=== PATIENT | female | born 2000 | race Caucasian/White ===

== ENCOUNTER 2024-06-04 14:55 | Emergency (ER) | payer SELFPAY ==
--- NOTE | 2024-06-04 14:57 | ED.CVA ---
History of Present Illness
<SORAYA Dahl - Last Filed: 06/04/24 18:47>
General
Chief Complaint: Seizure
Source: patient and family
Exam Limitations: none
Time Seen by Provider: 06/04/24 15:08
Nursing documentation reviewed up to this point in time: agreed with
Onset of Stroke Symptoms
Onset of symptoms known: No
Time pt last seen normal is known: No
History of Present Illness
History of Present Illness:
Patient is a 23-year-old female who was brought via EMS for evaluation of seizure. Patient was at her dentist and had a witnessed full body seizure lasting 20 seconds as per dentist. This occurred after the dentist injected local anesthetic. Mom
reports patient was extremely anxious about going to his dentist appointment she has not been a dentist in multiple years. She does remember getting multiple shots in her mouth and then remembers waking up to people around her. Mom reports the
patient had one possible seizure at age 8. They were seen in the ER at that time and never saw neurologist she has had no further seizure since. Patient's last menstrual period was last month she denies any alcohol use drug use or nicotine
use/smoking
She currently feels nauseous and she feels tired.
She denies any bladder incontinence denies any tongue or lip lacerations or abrasions.
Review of Systems
<SORAYA Dahl - Last Filed: 06/04/24 18:47>
Review of Systems
Allergies reviewed?: Yes
All Other Systems: ROS reviewed and negative except as documented in HPI and ROS
Constitutional: Reports no symptoms
EENT: Reports no symptoms
Respiratory: Reports no symptoms
ABD/GI: Reports nausea
Musculoskeletal: Reports no symptoms
Skin: Reports no symptoms
Neurological: Reports other (feels tired)
Psychiatric: Reports no symptoms
Phy Exam
<SORAYA Dahl - Last Filed: 06/04/24 18:47>
General Physical Exam
General Presentation: no apparent distress
General age: appears stated age
General Skin: warm and dry
General Habitus: normal
General Mental: alert
General Hydration: appears well hydrated
ENT Exam
ENT Exam: EOMI, neck supple and other (No oral abrasions or lacerations)
Eye Exam
Eye Exam: PERRL and EOMI
Eye Exam General: PERRL: bilateral and EOM intact: bilateral
Pupil Exam: Bilateral: round and reactive
Cardiovascular Exam
Cardiovascular Exam: tachycardia
Pulmonary Exam
Pulmonary Exam: lungs clear and no respiratory distress
Genitourinary Exam Female
Exam Female: other (No incontinence of urine)
Neurological Exam
Neurological Exam: alert, oriented x3, no motor deficits and no sensory deficits
Musculoskeletal Exam
Musculoskeletal Exam: full ROM
Skin Exam
Skin Exam: normal color and warm/dry
Psychiatric Exam
Psychiatric Exam: normal mood/affect
Course
<SORAYA Dahl - Last Filed: 06/04/24 18:47>
Orders/Labs/Results
Orders:
Orders
06/04/24 15:07
Test Result ONCE
06/04/24 15:38
Ondansetron Injectable [Zofran] 4 mg IV NOW STA
06/04/24 15:39
0.9% Sodium Chloride 1000 ml [Nss] 1,000 ml IV BOLUS
06/04/24 15:40
CT Head W/o Iv Contrast Urgent
Comment:
Reason For Exam: seizure
06/04/24 16:08
Complete Blood Count/With Diff Urgent
Comprehensive Metabolic Panel Urgent
HCG, Serum Qualitative Screen Urgent
Comment: Notify provider if positive test present
06/04/24 18:02
Urine Drug Abuse Screen Urgent
Date Specimen was Collected: 06/04/24
Time Specimen was Collected: 18:00
Abnormal Lab Results
06/04/24
16:08
WBC 14.7 H 10^3/uL
(4.8-10.8)
Abs Immat Gran (auto) 0.1 H 10^3/uL
(0-0.05)
Absolute Neuts (auto) 12.3 H 10^3/uL
(1.4-6.5)
Absolute Monos (auto) 0.7 H 10^3/uL
(0.1-0.6)
Immature Gran % 0.6 H %
(0-0.5)
Neutrophils % 83.5 H %
(42.2-75.2)
Lymphocytes % 10.7 L %
(20.5-51.1)
Carbon Dioxide 20 L mmol/L
(22-30)
06/04/24 16:08
06/04/24 16:08
Vital Signs
Initial and Last Documented VS:
Initial Vital Signs
Temp Pulse Resp BP Pulse Ox
97.4 F 112 20 136/79 97
06/04/24 14:59 06/04/24 14:59 06/04/24 14:59 06/04/24 14:59 06/04/24 14:59
Last Documented Vital Signs
Temp Pulse Resp BP Pulse Ox
97.4 F 99 21 113/76 100
06/04/24 14:59 06/04/24 18:02 06/04/24 18:02 06/04/24 17:00 06/04/24 17:00
Linklt;Eddie Rivera, DO - Last Filed: >
Orders/Labs/Results
Orders:
Orders
06/04/24 15:07
Test Result ONCE
06/04/24 15:38
Ondansetron Injectable [Zofran] 4 mg IV NOW STA
06/04/24 15:39
0.9% Sodium Chloride 1000 ml [Nss] 1,000 ml IV BOLUS
06/04/24 15:40
CT Head W/o Iv Contrast Urgent
Comment:
Reason For Exam: seizure
06/04/24 16:08
Complete Blood Count/With Diff Urgent
Comprehensive Metabolic Panel Urgent
HCG, Serum Qualitative Screen Urgent
Comment: Notify provider if positive test present
06/04/24 18:02
Urine Drug Abuse Screen Urgent
Date Specimen was Collected: 06/04/24
Time Specimen was Collected: 18:00
Abnormal Lab Results
06/04/24
16:08
WBC 14.7 H 10^3/uL
(4.8-10.8)
Abs Immat Gran (auto) 0.1 H 10^3/uL
(0-0.05)
Absolute Neuts (auto) 12.3 H 10^3/uL
(1.4-6.5)
Absolute Monos (auto) 0.7 H 10^3/uL
(0.1-0.6)
Immature Gran % 0.6 H %
(0-0.5)
Neutrophils % 83.5 H %
(42.2-75.2)
Lymphocytes % 10.7 L %
(20.5-51.1)
Carbon Dioxide 20 L mmol/L
(22-30)
06/04/24 16:08
06/04/24 16:08
Vital Signs
Initial and Last Documented VS:
Initial Vital Signs
Temp Pulse Resp BP Pulse Ox
97.4 F 112 20 136/79 97
06/04/24 14:59 06/04/24 14:59 06/04/24 14:59 06/04/24 14:59 06/04/24 14:59
Last Documented Vital Signs
Temp Pulse Resp BP Pulse Ox
97.4 F 99 21 113/76 100
06/04/24 14:59 06/04/24 18:02 06/04/24 18:02 06/04/24 17:00 06/04/24 17:00
<SORAYA Dahl - Last Filed: 06/04/24 18:47>
MDM/Problems Addressed
MDM/Problems Addressed:
As documented patient is a 23-year-old female sent for evaluation. Patient had 1 documented seizure that mom reports . she was seen at an ER and never had follow-up with a neurologist or specialist. Since then patient had no seizures. Patient was
at the dentist office today and very anxious about going there has not been to a dentist in years she remembers having them do local anesthetic and then the dentist reported that she had what look like a seizure lasting 20 seconds he describes this
as full body. She then recalls waking up to people in front of her. She presents awake alert no acute distress. She did not present confused. She said her head felt funny when she presented here and she was nauseous however nontoxic with a
normal neurologic exam. No incontinence of urine no inner oral abrasion or lacerations.
CT head negative. Patient denies any recent illness she is afebrile here minimally tachycardic white count elevated likely from stress response normal chemistries hCG negative. Case reviewed with Dr. Devries of neurology who feels that this is
likely convulsive syncope related stress and anxiety from being at the dentist office. Patient was not confused she was awake alert however a little tired .however will DC with outpatient followed by neurology for EEG. As d/c w/ neurology since
this is likely not seizure will not take her license. No meds started. Patient has not had any seizure activity here in the ER and has remained awake alert. She is stable drinking and eating. She does have a history of anxiety and is anxious
that she is here this is likely resulting in her elevated heart rate. she has no cp/ no sob.
<SORAYA Dahl - Last Filed: 06/04/24 18:47>
*Radiology
Radiology exam reviewed: radiology read reviewed
*Pulse Oximetry
Patient hypoxic: no
*Critical Care Note
Total Time (30-74mins, 75-104mins- exclusive of procedures): Not Applicable
<SORAYA Dahl - Last Filed: 06/04/24 18:47>
Patient Management
Discussion with other providers: [employer] (discussed with neuro DR Devries )
ED Attending Note
<Eddie Rivera DO - Last Filed: >
-
Portions of this chart may have been created with voice recognition software.� Occasional wrong word or��sound alike� substitutions may have occurred due to the inherent limitations of voice recognition software.
Discharge Plan
Departure
Patient Disposition: Home (Routine Discharge)
Date of Disposition: 06/04/24
Time of Disposition: 18:34
Patient with high blood pressure during this ER visit?: No
Condition: Fair
Covid-19: Not Applicable
Discharge Problem:
possible seizure
Instructions: BLOOD PRESSURE
Referrals:
Walker Devries MD [Active] -
NONE,* [Family Provider] -
Activity Restrictions/Additional Instructions:
As discussed it is possible that you had a seizure versus syncopal episode however likely convulsive syncope
Stay well hydrated and call neurologist tomorrow to make an appointment for reevaluation. It is likely that you will need an EEG for further evaluation.
Return if any worsening of symptoms
Interventions
Interventions:
*Risk Screen - Suicide Last Done: 06/04/24 15:30
*General Assessment Last Done: 06/04/24 14:59
*Neglect/Abuse Screening Last Done: 06/04/24 14:59
*ED COVID-19 Vaccine History Last Done: 06/04/24 16:00
ED- Cardiac Assessment Last Done: 06/04/24 16:00
ED- Neurological Assessment Last Done: 06/04/24 16:00
ED- Pulmonary Assessment Last Done: 06/04/24 16:00
Discharge Date and Time
Print Language: LITHUANIAN
[2024-06-04 14:59] VITALS: BP 136/79
[2024-06-04] MEDS: ZOFRAN 4 MG IV (15:56)
[2024-06-04 16:00] VITALS: BP 127/83
[2024-06-04] MEDS: NSS 1000 IV (16:00)
[2024-06-04 16:16] LABS: % Basophils 0.3 % (0-2); % Eosinophils 0.2 % (0-6); % Immature Granulocytes 0.6 % (0-0.5); % Lymphocytes 10.7 % (20.5-51.1); % Monocytes 4.7 % (1.7-9.3); % Neutrophils 83.5 % (42.2-75.2); Absolute Immature Granulocytes 0.1 10^3/uL (0-0.05); Absolute Lymphocytes 1.6 10^3/uL (1.2-3.4); Absolute Monocytes 0.7 10^3/uL (0.1-0.6); Absolute Neutrophils 12.3 10^3/uL (1.4-6.5); Hematocrit 43.4 % (37.0-47.0); Hemoglobin 14.4 g/dL (12.0-16.0); Mean Corp Hgb Conc. 33.2 g/dL (33.0-37.0); Mean Corpuscular Hgb 29.1 pg (27.0-31.0); Mean Corpuscular Volume 87.9 fL (81.0-99.0); Mean Platelet Volume 9.5 fL (7.4-10.4); Nucleated Red Blood Cells % 0 %; Platelet Count 284 10^3/uL (130-400); Red Blood Cell Count 4.94 10^6/uL (4.20-5.40); Red Cell Dist. Width 11.9 % (11.5-14.5); White Blood Cell Count 14.7 10^3/uL (4.8-10.8)
[2024-06-04 16:33] LABS: HCG, Serum Qualitative Screen Negative
[2024-06-04 16:36] LABS: ALT (SGPT) 16 U/L (0-35); AST (SGOT) 22 U/L (14-36); Albumin 4.6 g/dl (3.5-5.0); Alkaline Phosphatase 61 U/L (38-126); Blood Urea Nitrogen 9 mg/dl (7-17); Calcium 9.2 mg/dl (8.4-10.2); Carbon Dioxide 20 mmol/L (22-30); Chloride 105 mmol/L (98-107); Glucose 91 mg/dl (70-99); Potassium 4.4 mmol/L (3.5-5.1); Sodium 138 mmol/L (135-145); Total Bilirubin 0.4 mg/dl (0.2-1.3); Total Protein 7.3 g/dl (6.3-8.2); eGFR > 60.00
[2024-06-04 17:00] VITALS: BP 113/76
[2024-06-04 18:22] LABS: Amphetamines Negative (Negative); Barbiturates Negative (Negative); Benzodiazepines Negative (Negative); Buprenorphine Negative (Negative); Cocaine Negative (Negative); Marijuana Negative (Negative); Methadone Negative (Negative); Methamphetamines Negative (Negative); Opiates Negative (Negative); Phencyclidine Negative (Negative); Tricyclic Antidepressants Negative (Negative)
[2024-06-04 18:45] VITALS: BP 119/71
== END 2024-06-04 18:53 | disposition home or self-care (01) ==
LOC: EMR 14:55
PROVIDERS: Nurse Practitioner; EMERGENCY PHYSICIAN Emergency Medicine
DX: G40.909 Epilepsy, unspecified, not intractable, without status epilepticus (principal); F41.9 Anxiety disorder, unspecified
CPT/HCPCS: 99284; 70450; 80053; 80306; 84703; 85025